=== PATIENT | female | born 1980 | race Caucasian/White ===

== ENCOUNTER 2017-07-21 09:45 | Emergency (ER) | payer BC ==
[~2017-07-21] VITALS: Ht 170.2 cm; Wt 79.4 kg
[~2017-07-21 09:45] MED LIST: NORCO 5-325 TA1 EACH PO; ZOFRAN ODT8 MG SL
[2017-07-21] MEDS ORDERED: ZOFRAN ODT4 MG PO (11:42)
[2017-07-21] MEDS ORDERED: OXYCODONE HCL5 MG PO (11:42)
[2017-07-21] MEDS ORDERED: OMEPRAZOLE20 MG PO (11:42)
== END 2017-07-21 11:49 | disposition home or self-care (01) ==
LOC: ED 09:45
DX: R10.11 Right upper quadrant pain (principal); G43.909 Migraine, unspecified, not intractable, without status migrainosus; Z88.5 Allergy status to narcotic agent; Z88.1 Allergy status to other antibiotic agents; Z88.8 Allergy status to other drugs, medicaments and biological substances
CPT/HCPCS: 76705; 80053; 81001; 83690; 84703; 85025; 96374; 96375; 99284; J1170; J2405

== ENCOUNTER 2017-09-18 06:01 | Day surgery (SDC) | payer BC ==
[~2017-09-18] VITALS: Ht 170.2 cm; Wt 80.7 kg
[~2017-09-18 06:01] MED LIST changes: +OMEPRAZOLE20 MG PO; +OXYCODONE HCL5 MG PO; +ZOFRAN ODT4 MG PO
[2017-09-18] MEDS ORDERED: CARAFATE1 GM PO (06:21)
--- NOTE | 2017-09-18 07:59 | NUR ---
09/18/17 0759 Ruthann Christian PT ARRIVED TO PACU. MAINTAINING OWN AIRWAY. PT COMPLAINS OF 3/10 SOAR THROAT, THAT IS TOLERATBLE AT THIS TIME.
--- NOTE | 2017-09-18 08:40 | NUR ---
PT WAS SITTING IN BED, ALERT AND ORIENTED. SHE SEEMED PREPARED, HAD FEW QUESTIONS. I FOUND PT TO BE VERY FRIENDLY, AND STATED HER WILL BE BACK TO TAKE HER HOME. THEY HAVE CHILDREN THAT HE WENT HOME TO GET OFF TO SCHOOL AND WILL RETURN. PT DECLINED PRAYER AT THIS TIME
--- NOTE | 2017-09-22 07:49 | OR ---
[facility] [address], [place] [address] Signed DATE OF OPERATION: 09/18/2017 SURGEON: Jimmy Meyer MD PREOPERATIVE DIAGNOSES: Right upper abdominal pain, typical biliary with negative biliary workup. Empiric treatment with PPI and Carafate unhelpful. POSTOPERATIVE DIAGNOSES: Mild distal esophagitis with focus of Hayden's epithelium, mild pre-pyloric antral gastritis. PROCEDURE: Esophagogastroduodenoscopy with biopsy. ANESTHESIA: Intravenous sedation with fentanyl 100 mcg, Versed 4.5 mg. INDICATION: This 37-year-old white woman who has had 6 months of right subcostal pain, which has become quite progressive. She was empirically treated with omeprazole, which was of no benefit and subsequently Carafate. Biliary workup included an ultrasound, which showed no sign of stones. I have reviewed the ultrasound that showed a gallbladder wall. A CCK-HIDA test was obtained, showing an ejection fraction of 60%. This did cause more pain and nausea after her discharge from the Radiology suite. She does have strong family history of biliary disease in her mother as well as maternal grandfather. She is likely to have biliary disease; however, given her symptoms, assessment for other upper gastrointestinal disorders is recommended before considering cholecystectomy. The risks of upper endoscopy were reviewed with her including, but not limited to, bleeding, infection, perforation, and so on. She understands and wished to proceed. FINDINGS: There is no sign of ulceration of the esophagus, stomach, or duodenum. There was mild prepyloric antral gastritis and a small focus of Hayden's epithelium in the distal esophagus. Minimal esophagitis was noted. Biopsies were obtained. CLOtest was negative. DESCRIPTION OF PROCEDURE: Electronically Signed By: JIMMY MEYER MD 09/22/17 0749 PATIENT NAME: MITUL TREVIZO OPERATIVE REPORT DATE OF : 78 PHYSICIAN: JIMMY MEYER MD REPORT #: [id number] REPORT IS CONFIDENTIAL AND NOT TO BE RELEASED WITHOUT AUTHORIZATION [facility] [address] [place], [place] [address] Signed The patient was brought to the endoscopy suite, given topical Hurricaine spray, hypopharyngeal anesthesia, and placed in lateral decubitus position. She was given intravenous sedation to the point of slurred speech and nystagmus. A bite block was placed and an Olympus video upper endoscope passed into the hypopharynx. The vocal cords were visualized as normal, scope was advanced to the esophagus and throughout its length it appeared normal except in the distal portion where there was a small island, suggestive of Hayden's epithelium. This was subsequently re-evaluated with narrow band imaging and highly probable to be a very small island of Hayden's epithelium. Scope was passed to the stomach, which was insufflated with air. Copious secretions were noted. There was no sign of bile within the stomach. Antral and gastric folds were normal. The pylorus was normal. There was mild prepyloric antral gastritis, but no overt erosion or ulceration. The scope was passed into the duodenum, which looked normal overall. Biopsies were obtained to assess for celiac disease. The scope was withdrawn and biopsies taken of the antrum for both SHREYAS and pathologic testing. More proximal stomach appeared normal. Scope was withdrawn to the distal esophagus where the island of Hayden's epithelium was more fully evaluated. Biopsies were taken of the normal esophagus as well as the probable Hayden's island. Careful withdrawal of scope showed no other signs of Hayden's epithelium or other problem. The scope was removed and the patient was taken to recovery room in good condition. 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 Consideration will be made for cholecystectomy. She will call our office and we will make arrangements. We will review her pathology reports from upper endoscopy with due course. MD JEANETTE Garcia/DAYSIL /[id number] Electronically Signed By: JIMMY MEYER MD 09/22/17 0749 PATIENT NAME: MITUL TREVIZO OPERATIVE REPORT DATE OF : 78 PHYSICIAN: JIMMY MEYER MD REPORT #: [id number] REPORT IS CONFIDENTIAL AND NOT TO BE RELEASED WITHOUT AUTHORIZATION [facility] [address] [place] [id number] Signed cc: SHERIF Lopez Electronically Signed By: JIMMY MEYER MD 09/22/17 0749 PATIENT NAME: IRAMDIANEMITUL OPERATIVE REPORT DATE OF : 78 PHYSICIAN: JIMMY MEYER MD REPORT #: [id number] REPORT IS CONFIDENTIAL AND NOT TO BE RELEASED WITHOUT AUTHORIZATION
== END 2017-09-18 08:28 | disposition home or self-care (01) ==
LOC: DS 06:01 → OPS 06:01 → DS 10:00
PROVIDERS: Surgery
PROC: 0DB78ZX Excision of Stomach, Pylorus, Via Natural or Artificial Opening Endoscopic, Diagnostic (ICD-10-PCS; 2017-09-18)
PROC: 0DB68ZX Excision of Stomach, Via Natural or Artificial Opening Endoscopic, Diagnostic (ICD-10-PCS; 2017-09-18)
PROC: 0DB38ZX Excision of Lower Esophagus, Via Natural or Artificial Opening Endoscopic, Diagnostic (ICD-10-PCS; 2017-09-18)
PROC: 0DB98ZX Excision of Duodenum, Via Natural or Artificial Opening Endoscopic, Diagnostic (ICD-10-PCS; principal; 2017-09-18 06:45)
DX: K29.50 Unspecified chronic gastritis without bleeding (principal); K20.9 Esophagitis, unspecified; F32.9 Major depressive disorder, single episode, unspecified; G43.909 Migraine, unspecified, not intractable, without status migrainosus; Z88.1 Allergy status to other antibiotic agents; Z88.5 Allergy status to narcotic agent; Z87.891 Personal history of nicotine dependence; Z90.49 Acquired absence of other specified parts of digestive tract; Z98.890 Other specified postprocedural states; Z79.899 Other long term (current) drug therapy
CPT/HCPCS: 99152; 99153; J2250; J3010; J7120

== ENCOUNTER 2017-09-26 05:50 | Day surgery (SDC) | payer BC ==
[~2017-09-26] VITALS: Ht 170.2 cm; Wt 79.4 kg
[~2017-09-26 05:50] MED LIST changes: +CARAFATE1 GM PO
--- NOTE | 2017-09-26 08:49 | NUR ---
09/26/17 0849 Maude Parson 0828-PATIENT ARRIVED TO PACU ON 10L MASK O2 SAT 100% PATIENT AWAKE REPORTING PAIN 5/10 TO ABDOMEN. 4 LAP SITES TO ABDOMEN CDI WITH STERI STRIPS IN PLACE. SR. 0843-PATIENT MEDICATED PER EMAR FOR PAIN. WEANED TO 6L MASK O2 SAT 100%. 0850-PATIENT REPORTS PAIN HAS DECREASED A LITTLE.
[2017-09-26] MEDS ORDERED: IBUPROFEN600 MG PO (08:54)
[2017-09-26] MEDS ORDERED: OXYCODON-ACETA1 EAC2 PO (08:54)
[2017-09-26] MEDS ORDERED: MAPAP325 MG PO (08:55)
--- NOTE | 2017-09-26 09:29 | NUR ---
ICED WATER AND APPLESAUCE GIVEN. CALL LIGHT W/IN REACH. SPOUSE @ BS. PT TAKES SIPS OF WATER AND BITES OF APPLESAUCE AND TOLERATES THAT WELL.
--- NOTE | 2017-09-28 09:32 | OR ---
[facility] [address] [place], [place] [address] Signed DATE OF OPERATION: 09/26/2017 SURGEON: Jimmy Meyer MD PREOPERATIVE DIAGNOSIS: Chronic acalculous cholecystitis. POSTOPERATIVE DIAGNOSIS: Chronic acalculous cholecystitis. PROCEDURES: 1. Laparoscopic cholecystectomy with intraoperative cholangiogram. 2. Surgeon-directed fluoroscopy. ANESTHESIA: General endotracheal (Jimmy Ng CRNA) and local 20 mL of 0.25% Marcaine with epinephrine. INDICATION: This 37-year-old white woman is a patient of Kymberly Powers and referred for chronic persistent right upper abdominal pain. She has had a rather extensive evaluation including an ultrasound, which was normal and a CCK-HIDA test, which was an ejection fraction 60%. She had recurrence of nausea and pain upon leaving the hospital after this test, very typical of her usual symptoms. She did undergo upper endoscopy, which did not show ulcer or other finding that would account for recurrent symptoms of right subcostal pain. On that basis, it is likely that she has acalculous cholecystitis and is here today for cholecystectomy preferred by a laparoscopic approach. The risks of bleeding, infection, bile duct injury, need for open procedure and most importantly failure to cure her symptoms was reviewed in detail. She understands and wished to proceed. FINDINGS: The gallbladder did have mild chronic inflammatory change. There is no sign of stone within the gallbladder, but the mucosa had chronic inflammation. Cholangiogram was normal. Liver was normal and no other findings of note were seen in the abdomen. DESCRIPTION OF PROCEDURE: The patient was brought to the operating room, given a general endotracheal anesthetic. Preoperative antibiotic Ancef was given. Sequential compression device and stockings used and heparin subcutaneously administered. The abdomen was prepared with chlorhexidine solution and draped sterilely. An infraumbilical incision was made and Electronically Signed By: JIMMY MEYER MD 09/28/17 0932 PATIENT NAME: MITUL TREVIZO OPERATIVE REPORT DATE OF : 78 PHYSICIAN: JIMMY MEYER MD REPORT #: [id number] REPORT IS CONFIDENTIAL AND NOT TO BE RELEASED WITHOUT AUTHORIZATION [facility] [address] [place], [place] [address] Signed using an open Kristina cannula technique, pneumoperitoneum was achieved to a level of 14 mmHg of carbon dioxide gas. Intraabdominal inspection showed no sign of ascites or carcinomatosis. The liver appeared normal. Liver obscured the gallbladder initially. A 12-mm epigastric port was placed and subsequently two 5 mm midclavicular and right anterior axillary line ports. The gallbladder was elevated cephalad and found to have chronic inflammatory change. The gallbladder was grasped at the infundibulum and retracted laterally. Using blunt and electrocautery dissection, the triangle of Calot was dissected free ultimately identifying well the cystic duct and cystic artery. Cystic artery was doubly clipped and divided and a clip applied across gallbladder cystic duct junction. A transverse choledochotomy was made in the cystic duct and egress of clear bile was noted upon retrograde milking of the duct. Bile had a somewhat mucoid appearance and was somewhat thickened, but there were no stones. Using the Banerjee-type cholangiocatheter, intraoperative cholangiography was undertaken showing free flow of contrast in biliary tree with prompt emptying into the duodenum. Biliary anatomy was conventional. The catheter was removed and the cystic duct was triply clipped and divided, and the gallbladder was dissected free in a retrograde fashion using electrocautery. Gallbladder was extracted through the infraumbilical port site without problem, opened on the back table and found to have chronic inflammatory change of the mucosa, but no sign of stones or neoplasm. Irrigation was undertaken in the subhepatic space. There was no sign of bile leak, bleeding, or other problems. The trocars were removed under direct visualization showing no sign of bleeding. The infraumbilical fascial incision was reapproximated with interrupted #0 Vicryl suture. A 20 mL of 0.25% Marcaine with epinephrine was injected locally at each trocar site. The skin was closed with interrupted 3-0 Vicryl. Steri-Strips were applied. The patient was ultimately extubated and transported to recovery in good condition having suffered no complications. Sponge, needle, and counts reported as correct x3. MD JEANETTE Garcia/DAYSIL /[id number] Electronically Signed By: JIMMY MEYER MD 09/28/17 0932 PATIENT NAME: MITUL TREVIZO OPERATIVE REPORT DATE OF : 78 PHYSICIAN: JIMMY MEYER MD REPORT #: [id number] REPORT IS CONFIDENTIAL AND NOT TO BE RELEASED WITHOUT AUTHORIZATION [address] [address] Signed cc: SHERIF Lopez Electronically Signed By: JIMMY MEYER MD 09/28/17 0932 PATIENT NAME: MITUL TREVIZO OPERATIVE REPORT DATE OF : 78 PHYSICIAN: JIMMY MEYER MD REPORT #: [id number] REPORT IS CONFIDENTIAL AND NOT TO BE RELEASED WITHOUT AUTHORIZATION
== END 2017-09-26 10:55 | disposition home or self-care (01) ==
LOC: DS 05:50
PROVIDERS: Surgery
PROC: BF12YZZ Fluoroscopy of Gallbladder using Other Contrast (ICD-10-PCS; 2017-09-26)
PROC: 0FT44ZZ Resection of Gallbladder, Percutaneous Endoscopic Approach (ICD-10-PCS; principal; 2017-09-26 06:45)
DX: K81.1 Chronic cholecystitis (principal); F32.9 Major depressive disorder, single episode, unspecified; G43.909 Migraine, unspecified, not intractable, without status migrainosus; K21.9 Gastro-esophageal reflux disease without esophagitis; Z79.899 Other long term (current) drug therapy
CPT/HCPCS: 00790; 74300; J0330; J0690; J1100; J1644; J1885; J2250; J2405; J2704; J2710; J2765; J3010; J7120; Q9967